=== PATIENT | female | born 1990 | race Caucasian/White ===

== ENCOUNTER → 2016-12-08 | Outpatient (CLI) | payer BC | END | disposition home or self-care (01) | LOC: MW.CHRC 09:37 | PROVIDERS: ATTEND Family Medicine | DX: N39.0 Urinary tract infection, site not specified (principal); N89.8 Other specified noninflammatory disorders of vagina | CPT/HCPCS: 81001; 87086; 87480; 87510; 87660 ==

== ENCOUNTER → 2016-12-09 | Outpatient (CLI) | payer BC ==
--- NOTE | 2016-12-09 17:13 | CR ---
EXAMINATION: Bilateral feet HISTORY: Pain COMPARISON: None TECHNIQUE: 2 views bilaterally FINDINGS: There is no acute osseous abnormality, dislocation, or fracture identified. Bone mineraliz ation and joint spaces appear normal. IMPRESSION: Grossly unremarkable bilateral foot radiographs.
== END ==
LOC: MW.DI 15:19
PROVIDERS: ATTEND Podiatrist Foot & Ankle Surgery
DX: M79.672 Pain in left foot (principal); M79.671 Pain in right foot
CPT/HCPCS: 736202650; 73620-50

== ENCOUNTER → 2016-12-24 | Outpatient (CLI) | payer BC | LOC: MW.CHRC 13:47 | PROVIDERS: ATTEND Family Medicine | DX: R30.0 Dysuria (principal) | CPT/HCPCS: 81001; 87086 ==

== ENCOUNTER → 2017-01-26 | Outpatient (CLI) | payer BC ==
[2017-01-26 13:12] LABS: CHLORIDE,CL 113 mmol/L (98-110); SODIUM,NA 140 mmol/L (136-146)
== END ==
LOC: MW.CHFP 12:03
PROVIDERS: ATTEND Student in an Organized Health Care Education/Training Program
DX: R19.5 Other fecal abnormalities (principal); R10.9 Unspecified abdominal pain; R11.0 Nausea
CPT/HCPCS: 36415; 80053; 83630; 85025; 87046; 87324; 87899

== ENCOUNTER → 2017-01-31 | Outpatient (CLI) | payer BC ==
--- NOTE | 2017-01-31 11:51 | US ---
EXAMINATION: Right upper quadrant ultrasound HISTORY: Abdominal pain COMPARISON: 05/17/2016 TECHNIQUE: Grayscale and color Doppler images obtained of the right upper quadrant. FINDINGS: The visualized pancreas appears normal. The liver is normal in contour and echogenicity wi thout a focal hepatic mass. The gallbladder wall thickness is normal. No pericholecystic fluid or sh adowing gallstones. The common bile duct measures 2 mm. The right kidney measures at least 10.5 cm p ole-to-pole without evidence of hydronephrosis. The sonographic Roman sign is negative. IMPRESSION: Unremarkable right upper quadrant ultrasound.
--- NOTE | 2017-01-31 14:14 | NM ---
EXAMINATION: Nuclear medicine hepatobiliary study (HIDA) with cholecystokinin (calculation of gallbl adder ejection fraction for function). HISTORY: Pain. PROCEDURE: Following intravenous administration of 3.6 mCi of technetium 99m Choletec, dynamic images were ob tained up to one-hour post injection. This is followed by slow intravenous administration of 1.7 mcg of CCK and additional dynamic images were obtained. Gallbladder ejection fraction is calculated. FINDINGS: The initial dynamic images demonstrates clearance of the tracer from the blood pool with the prompt tracer uptake by the liver. By 10 minutes tracer activity is noted in the gallbladder. The post CCK images demonstrates optimal contraction of the gallbladder with ejection fraction of 53 percent (nor mal is equal or more than 35%). Tracer activity is noted in the small intestine following CCK admini stration. IMPRESSION: 1. Patent cystic and common bile ducts. Normal liver function. 2. Normal gallbladder ejection fraction following CCK administration ( 53 %; normal equal or more th an 35%).
== END | disposition home or self-care (01) ==
LOC: MW.US 08:54
PROVIDERS: ATTEND Student in an Organized Health Care Education/Training Program
DX: R19.5 Other fecal abnormalities (principal); R10.9 Unspecified abdominal pain
CPT/HCPCS: 76705; 78227; A9537; J2805

== ENCOUNTER 2021-10-29 10:50 | Emergency (ER) | payer BC, OTHER ==
[2021-10-29 12:08] LABS: BLOOD UREA NITROGEN,BUN 15 mg/dL (7.0-18.0); CARBON DIOXIDE,CO2 26.7 mmol/L (21.0-32.0); CHLORIDE,CL 105 mmol/L (98-107); GLUCOSE RANDOM 101 mg/dL (74-106); POTASSIUM,K 4.1 mmol/L (3.5-5.1); SODIUM,NA 142 mmol/L (136-145)
[2021-10-29] MEDS ORDERED: Divalproex Sodium Delayed-Release 500 MG Tab.CR PO STA (12:52)
== END 2021-10-29 13:18 | disposition home or self-care (01) ==
LOC: MW.ED 10:50
DX: R55 Syncope and collapse (principal); Z86.16 Personal history of COVID-19
CPT/HCPCS: 36415; 80053; 83735; 84439; 84443; 84703; 85025; 93005; 99284; A9270